=== PATIENT | female | born 1965 | race Native Hawaiian/Other Pacific Islander ===

== ENCOUNTER 2020-04-23 10:55 | Outpatient (CLI) | payer OTHER | END 2020-04-23 20:13 | disposition home or self-care (01) | LOC: INF 10:55 | PROVIDERS: ATTEND Internal Medicine | DX: Z23 Encounter for immunization (principal) | CPT/HCPCS: 96372 ==

== ENCOUNTER 2020-05-21 08:37 | Outpatient (CLI) | payer OTHER | END 2020-05-21 19:54 | disposition home or self-care (01) | LOC: INF 08:37 | PROVIDERS: ATTEND Internal Medicine | DX: Z23 Encounter for immunization (principal) | CPT/HCPCS: 96372 ==